=== PATIENT | male | born 1975 | race Caucasian/White ===

== ENCOUNTER → 2016-10-23 | Outpatient (CLI) | payer OTHER ==
--- NOTE | 2016-10-23 13:11 | DIAGNOSTIC IMAGING REPORT ---
RIGHT KNEE 1 OR 2 VIEWS ROUTINE CLINICAL HISTORY: Right knee pain. COMPARISON: None FINDINGS: Alignment of the right knee is anatomic. There is no acute fracture or suspicious lesion. There is a suspected trace joint effusion. Joint spaces are preserved. IMPRESSION: 1. No osseous abnormality of the right knee. 2. Suspected trace right knee joint effusion. Electronically signed by: Garry Stern M.D. 10/23/2016 1:10 PM Dictated Date/Time: 10/23/2016 1:09 PM
--- NOTE | 2016-10-23 13:15 | DIAGNOSTIC IMAGING REPORT ---
RIGHT ELBOW MIN 3 VIEWS ROUTINE CLINICAL HISTORY: Right elbow pain. Fall. COMPARISON: None FINDINGS: Alignment of the right elbow is anatomic. There is no acute fracture or joint effusion. IMPRESSION: No acute fracture or joint effusion of the right elbow. Electronically signed by: Garry Stern M.D. 10/23/2016 1:14 PM Dictated Date/Time: 10/23/2016 1:13 PM
== END | disposition home or self-care (01) ==
LOC: C.LAB1850 12:49
PROVIDERS: ATTEND Nurse Practitioner Family
DX: M25.521 Pain in right elbow (principal); M25.561 Pain in right knee; W19.XXXA Unspecified fall, initial encounter